=== PATIENT | male | born 1940 | race Two or more races ===

== ENCOUNTER 2017-03-23 17:51 | Inpatient (IN) | payer MEDICARE, OTHER ==
[~2017-03-23] VITALS: Ht 180.3 cm; Wt 71.0 kg
[2017-03-23] MEDS ORDERED: SODIUM CHLORIDE 0.9% 1,000 ML IV ONE ×2 (18:22)
[2017-03-23] MEDS ORDERED: AMIODARONE HCL 900 MG in DEXTROSE 500 ML IV SCH (18:32)
[2017-03-23 18:48] LABS: Hematocrit 51.4 % (41.0-53.0); Hemoglobin 16.9 g/dL (13.5-17.5); Mean Corpuscular Hemoglobin 30.8 pg (28.0-32.0); Mean Corpuscular Hgb Conc. 32.9 g/dL (32.0-36.0); Mean Corpuscular Volume 93.6 fL (80.0-100.0); Mean Platelet Volume 10.1 fL (6.9-10.8); Platelet Count (auto) 275 10^3/uL (140-450); Red Cell Distribution Width 14.2 % (11.8-14.3); White Blood Cell 21.3 10^3/uL (4.4-10.8)
[2017-03-23] MEDS: NOREPINEPHRINE 8 MG/250ML KIT 250 ML IV SCH (18:52)
[2017-03-23 18:54] LABS: INR 1.1 (0.9-1.15); Partial Thromboplastin Time 26.3 sec (22.64-33.71)
[2017-03-23 19:02] LABS: B-Type Natriuretic Peptide 111.29 pg/mL (0-100)
[2017-03-23 19:07] LABS: Temperature: 21.6 C (20.0-25.0)
[2017-03-23 19:15] LABS: Albumin 3.4 g/dL (3.4-5.0); BUN/Creatinine Ratio 8.8; Bilirubin, Total 0.5 mg/dL (0.2-1.0); Calcium 8.5 mg/dL (8.5-10.1); Potassium 3.4 mmol/L (3.5-5.1)
[2017-03-23] MEDS ORDERED: ADENOSINE 6 MG/2 ML INJ IV ONE ×2 (19:41→20:00)
[2017-03-23] MEDS ORDERED: ONDANSETRON HCL 4 MG/2 ML VIAL ONE (19:46)
[2017-03-23 19:56] LABS: Metamyelocytes % 0; Myelocytes % 0; Promyelocytes % 0; Reactive Lymphocytes 0
[2017-03-23] MEDS ORDERED: MORPHINE SULF INJ 2 MG/ML SYRINGE 1ML IV ONE ×3 (20:00→20:30)
[2017-03-23] MEDS ORDERED: ONDANSETRON HCL 4 MG/2 ML VIAL IV ONE (20:00)
[2017-03-23] MEDS ORDERED: HEPARIN SODIUM (PORCINE) 5000 UNITS/ML 1ML VIAL IV ONE ×2 (20:00)
[2017-03-23] MEDS ORDERED: METOPROLOL TARTRATE 50 MG TAB PO ONE (20:00)
[2017-03-23] MEDS ORDERED: ASPirin 325 MG TAB PO ONE (20:00)
[2017-03-23 21:16] LABS: Platelet Estimate Adequate
[2017-03-23] MEDS ORDERED: NITROGLYCERIN 0.4 MG SL TAB SL PRN (21:30)
[2017-03-23] MEDS ORDERED: DEXTROSE (50%) 50ML SYRG IV PRN (21:30)
[2017-03-23] MEDS ORDERED: MORPHINE SULF INJ 2 MG/ML SYRINGE 1ML IV PRN (21:30)
[2017-03-23] MEDS: cefTRIAXone 1GM/50ML D5W 50 ML IV SCH (21:50)
[2017-03-23] MEDS: SODIUM CHLORIDE 0.9% 1,000 ML IV SCH (21:55)
[2017-03-23 22:38] LABS: Lactic Acid w/Reflex 3.3 mmol/L (0.4-2.0)
[2017-03-23] MEDS: AZITHROMYCIN 500MG/D5W 250ML 250 ML IV SCH (22:50)
[2017-03-23] MEDS: ATORVASTATIN 20 MG TAB PO SCH (22:50)
[2017-03-23 23:05] LABS: REFLEX LACTIC ACID YES OR NO YES
[2017-03-24] VITALS (14 sets, daily range): BP systolic 98–134; BP diastolic 42–94
[2017-03-24] MEDS ORDERED: LORazepam 2MG/ML-1ML VIAL IV PRN
[2017-03-24] MEDS: ACCU-CHEK COMFORT CURVE STRIP VI SCH ×4 (00:05→18:16)
[2017-03-24] MEDS: InsuLIN REG 1unit/0.01ml Soln (100units/ml) SC SCH ×4 (00:08→18:19)
[2017-03-24 00:56] LABS: Lactic Acid w/Reflex 2.9 mmol/L (0.4-2.0)
[2017-03-24 01:08] LABS: REFLEX LACTIC ACID YES OR NO NO
[2017-03-24] MEDS: SODIUM CHLORIDE 0.9% 1,000 ML IV SCH ×2 (05:17→21:17)
[2017-03-24] MEDS: ACETAMINOPHEN 325 MG TAB PO PRN ×2 (06:24→13:58)
[2017-03-24 06:48] LABS: Basophils # (auto) 0 uL; Basophils % (auto) 0.2 % (0.0-2.0); Eosinophils # (auto) 0 uL; Hematocrit 42.7 % (41.0-53.0); Hemoglobin 14.4 g/dL (13.5-17.5); Lymphocytes # (auto) 1.2 uL; Lymphocytes % (auto) 5.5 % (10.0-50.0); Mean Corpuscular Hemoglobin 31.2 pg (28.0-32.0); Mean Corpuscular Hgb Conc. 33.7 g/dL (32.0-36.0); Mean Corpuscular Volume 92.6 fL (80.0-100.0); Mean Platelet Volume 9.7 fL (6.9-10.8); Monocytes # (auto) 1.8 uL; Monocytes % (auto) 8.2 % (0.0-12.0); Neutrophils # (auto) 18.6 uL; Neutrophils % (auto) 86.1 % (37.0-80.0); Platelet Count (auto) 204 10^3/uL (140-450); White Blood Cell 21.7 10^3/uL (4.4-10.8)
[2017-03-24 07:40] LABS: Albumin 2.9 g/dL (3.4-5.0); BUN/Creatinine Ratio 11.3; Bilirubin, Total 0.5 mg/dL (0.2-1.0); Calcium 7.2 mg/dL (8.5-10.1); Potassium 3.2 mmol/L (3.5-5.1); Total Protein 5.9 g/dL (6.4-8.2)
[2017-03-24] MEDS: cefTRIAXone 1GM/50ML D5W 50 ML IV SCH (09:07)
[2017-03-24] MEDS: PANTOPRAZOLE 40 MG/10 ML VIAL IV SCH (09:38)
[2017-03-24] MEDS: ASPirin 81 mg TAB PO SCH (09:38)
[2017-03-24] MEDS: ENOXAPARIN SOD 30 MG/0.3 ML SYRINGE SC SCH (09:38)
[2017-03-24] MEDS: ENALAPRIL MALEATE 2.5 MG TAB PO SCH (09:38)
[2017-03-24] MEDS: AZITHROMYCIN 500MG/D5W 250ML 250 ML IV SCH (10:10)
[2017-03-24] MEDS ORDERED: PIPERACILLIN-TAZOB 2.25GM 50 ML IV ONE (10:45)
[2017-03-24] MEDS ORDERED: PIPERACILLIN-TAZOB 2.25GM 50 ML IV SCH (12:00)
[2017-03-24] MEDS: PIPERACILLIN-TAZOB 2.25GM 50 ML IV SCH ×2 (12:30→18:14)
[2017-03-24] MEDS: LINEZOLID 600MG/300ML 300 ML IV SCH (14:52)
[2017-03-24] MEDS: NOREPINEPHRINE 8 MG/250ML KIT 250 ML IV SCH (18:49)
[2017-03-24 19:27] LABS: Urine Bilirubin Negative (Negative); Urine Blood TRACE /uL (Negative); Urine Color Yellow (Yellow); Urine Glucose TRACE mg/dL (Normal); Urine Hyaline Cast MOD /lpf (0 - 2); Urine Ketone TRACE (Negative); Urine Mucus FEW (None Seen); Urine Nitrite Negative (Negative); Urine RBC 19 /hpf (0 - 3); Urine Squamous Epithelial Cell FEW /hpf (<5); Urine Urobilinogen Normal (Negative); Urine WBC Clumps PRESENT /hpf (None Seen); Urine pH 5.5 (5.0-8.0)
[2017-03-24] MEDS ORDERED: LINEZOLID 600MG/300ML 300 ML IV SCH (22:00)
[2017-03-24] MEDS: ATORVASTATIN 20 MG TAB PO SCH (22:35)
[2017-03-25] VITALS (95 sets, daily range): BP systolic 65–135; BP diastolic 22–75
[2017-03-25] MEDS: PIPERACILLIN-TAZOB 2.25GM 50 ML IV SCH ×5 (00:09→23:50)
[2017-03-25] MEDS: ACCU-CHEK COMFORT CURVE STRIP VI SCH ×5 (00:23→23:50)
[2017-03-25] MEDS ORDERED: AMIODARONE HCL 900 MG in DEXTROSE 500 ML IV SCH (00:34)
[2017-03-25] MEDS: LINEZOLID 600MG/300ML 300 ML IV SCH ×2 (02:05→14:03)
[2017-03-25] MEDS: SODIUM CHLORIDE 0.9% 1,000 ML IV SCH ×2 (02:17→06:15)
[2017-03-25 04:00] LABS: Basophils # (auto) 0 uL; Eosinophils # (auto) 0 uL; Eosinophils % (auto) 0.1 % (0.0-7.0); Hematocrit 36.8 % (41.0-53.0); Hemoglobin 12.3 g/dL (13.5-17.5); Lymphocytes # (auto) 1.1 uL; Lymphocytes % (auto) 6.9 % (10.0-50.0); Mean Corpuscular Hemoglobin 31.3 pg (28.0-32.0); Mean Corpuscular Hgb Conc. 33.5 g/dL (32.0-36.0); Mean Corpuscular Volume 93.4 fL (80.0-100.0); Monocytes # (auto) 1.1 uL; Monocytes % (auto) 6.6 % (0.0-12.0); Neutrophils # (auto) 14.2 uL; Neutrophils % (auto) 86.4 % (37.0-80.0); Platelet Count (auto) 131 10^3/uL (140-450); Red Cell Distribution Width 13.6 % (11.8-14.3); White Blood Cell 16.4 10^3/uL (4.4-10.8)
[2017-03-25 04:20] LABS: Albumin 2.6 g/dL (3.4-5.0); BUN/Creatinine Ratio 19.1; Bilirubin, Total 0.6 mg/dL (0.2-1.0); Calcium 6.6 mg/dL (8.5-10.1); Magnesium 1.9 mg/dL (1.6-2.6); Phosphorus 2.4 mg/dL (2.5-4.90); Potassium 3.2 mmol/L (3.5-5.1); Total Protein 5.3 g/dL (6.4-8.2); Uric Acid 6.4 mg/dL (3.5-7.2)
[2017-03-25] MEDS: InsuLIN REG 1unit/0.01ml Soln (100units/ml) SC SCH ×4 (06:07→17:47)
[2017-03-25] MEDS: ACETAMINOPHEN 325 MG TAB PO PRN ×3 (06:08→20:22)
[2017-03-25] MEDS: ENALAPRIL MALEATE 2.5 MG TAB PO SCH (10:00)
[2017-03-25] MEDS: PANTOPRAZOLE 40 MG/10 ML VIAL IV SCH (10:07)
[2017-03-25] MEDS: ENOXAPARIN SOD 30 MG/0.3 ML SYRINGE SC SCH (10:08)
[2017-03-25] MEDS: AZITHROMYCIN 500MG/D5W 250ML 250 ML IV SCH (10:08)
[2017-03-25] MEDS: ASPirin 81 mg TAB PO SCH (10:09)
[2017-03-25] MEDS: SOD CHL 0.9%/ KCL 20MEQ 1,000 ML IV SCH (10:45)
[2017-03-25] MEDS ORDERED: AMIODARONE HCL 200 MG TAB PO ONE (14:15)
[2017-03-25] MEDS: NOREPINEPHRINE 8 MG/250ML KIT 250 ML IV SCH (17:47)
[2017-03-25] MEDS: AMIODARONE HCL 200 MG TAB PO SCH (22:00)
[2017-03-25] MEDS ORDERED: ATORVASTATIN 20 MG TAB PO SCH (22:00)
[2017-03-26] VITALS (44 sets, daily range): BP systolic 87–145; BP diastolic 41–93
[2017-03-26] MEDS: SOD CHL 0.9%/ KCL 20MEQ 1,000 ML IV SCH ×2 (00:07→11:37)
[2017-03-26] MEDS: InsuLIN REG 1unit/0.01ml Soln (100units/ml) SC SCH ×4 (00:07→17:44)
[2017-03-26] MEDS: LINEZOLID 600MG/300ML 300 ML IV SCH (01:51)
[2017-03-26 04:30] LABS: Basophils # (auto) 0 uL; Basophils % (auto) 0.2 % (0.0-2.0); Eosinophils # (auto) 0 uL; Eosinophils % (auto) 0.1 % (0.0-7.0); Hematocrit 38.4 % (41.0-53.0); Hemoglobin 12.8 g/dL (13.5-17.5); Lymphocytes % (auto) 7.4 % (10.0-50.0); Mean Corpuscular Hemoglobin 30.9 pg (28.0-32.0); Mean Corpuscular Hgb Conc. 33.4 g/dL (32.0-36.0); Mean Corpuscular Volume 92.4 fL (80.0-100.0); Mean Platelet Volume 10.2 fL (6.9-10.8); Monocytes # (auto) 0.9 uL; Monocytes % (auto) 6.3 % (0.0-12.0); Neutrophils # (auto) 11.7 uL; Platelet Count (auto) 143 10^3/uL (140-450); Red Cell Distribution Width 13.2 % (11.8-14.3); White Blood Cell 13.6 10^3/uL (4.4-10.8)
[2017-03-26 05:05] LABS: BUN/Creatinine Ratio 19.7; Magnesium 2.1 mg/dL (1.6-2.6); Potassium 3.3 mmol/L (3.5-5.1)
[2017-03-26] MEDS: ACCU-CHEK COMFORT CURVE STRIP VI SCH ×3 (05:57→17:44)
[2017-03-26] MEDS: PIPERACILLIN-TAZOB 2.25GM 50 ML IV SCH ×3 (05:57→17:44)
[2017-03-26] MEDS: ASPirin 81 mg TAB PO SCH (09:22)
[2017-03-26] MEDS: PANTOPRAZOLE 40 MG/10 ML VIAL IV SCH (09:22)
[2017-03-26] MEDS: ENOXAPARIN SOD 30 MG/0.3 ML SYRINGE SC SCH (09:23)
[2017-03-26] MEDS ORDERED: POTASSIUM CHL 20 Meq TABLET PO ONE ×2 (10:00→11:15)
[2017-03-26] MEDS: AMIODARONE HCL 200 MG TAB PO SCH ×2 (10:00→21:57)
[2017-03-26] MEDS: PANTOPRAZOLE 40 MG TAB PO SCH (10:00)
[2017-03-26] MEDS ORDERED: SODIUM CHLORIDE 0.9% 1,000 ML IV SCH (10:00)
[2017-03-26] MEDS: ACETAMINOPHEN 325 MG TAB PO PRN (11:36)
[2017-03-26 12:10] LABS: PSA Free 2.97 ng/mL
[2017-03-26] MEDS ORDERED: ONDANSETRON HCL 4 MG/2 ML VIAL IV ONE (12:15)
[2017-03-26] MEDS: TAMSULOSIN HYDROCHLORIDE 0.4 MG CAP PO SCH (17:44)
[2017-03-27] MEDS: SOD CHL 0.9%/ KCL 20MEQ 1,000 ML IV SCH (00:03)
[2017-03-27] MEDS: PIPERACILLIN-TAZOB 2.25GM 50 ML IV SCH ×3 (00:03→11:09)
[2017-03-27] MEDS: ACCU-CHEK COMFORT CURVE STRIP VI SCH ×4 (00:03→17:19)
[2017-03-27 05:18] VITALS: BP 131/59
[2017-03-27] MEDS: InsuLIN REG 1unit/0.01ml Soln (100units/ml) SC SCH ×4 (05:27→17:19)
[2017-03-27] MEDS: ACETAMINOPHEN 325 MG TAB PO PRN ×2 (05:28→12:01)
[2017-03-27 06:11] LABS: Basophils # (auto) 0 uL; Basophils % (auto) 0.2 % (0.0-2.0); Eosinophils # (auto) 0 uL; Eosinophils % (auto) 0.4 % (0.0-7.0); Hematocrit 38.6 % (41.0-53.0); Lymphocytes % (auto) 11.6 % (10.0-50.0); Mean Corpuscular Hemoglobin 31.3 pg (28.0-32.0); Mean Corpuscular Hgb Conc. 33.6 g/dL (32.0-36.0); Mean Corpuscular Volume 93.1 fL (80.0-100.0); Mean Platelet Volume 10.7 fL (6.9-10.8); Monocytes # (auto) 0.5 uL; Monocytes % (auto) 6.1 % (0.0-12.0); Neutrophils # (auto) 7.1 uL; Neutrophils % (auto) 81.7 % (37.0-80.0); Nucleated Red Blood Cells % 0.1 %; Platelet Count (auto) 121 10^3/uL (140-450); Red Cell Distribution Width 13.1 % (11.8-14.3); White Blood Cell 8.7 10^3/uL (4.4-10.8)
[2017-03-27 06:38] LABS: BUN/Creatinine Ratio 19.2; Calcium 7.2 mg/dL (8.5-10.1)
[2017-03-27 10:00] VITALS: BP 135/73
[2017-03-27] MEDS: ASPirin 81 mg TAB PO SCH (10:11)
[2017-03-27] MEDS: ENOXAPARIN SOD 30 MG/0.3 ML SYRINGE SC SCH (10:11)
[2017-03-27] MEDS: PANTOPRAZOLE 40 MG TAB PO SCH (10:11)
[2017-03-27] MEDS: AMIODARONE HCL 200 MG TAB PO SCH ×2 (10:12→22:00)
[2017-03-27] MEDS ORDERED: LEVOFLOXACIN 750MG 150 ML IV ONE (12:45)
[2017-03-27] MEDS: SODIUM CHLORIDE 0.9% 1,000 ML IV SCH (12:59)
[2017-03-27] MEDS: ONDANSETRON HCL 4 MG/2 ML VIAL IV PRN (13:10)
[2017-03-27 13:56] VITALS: BP 113/77
[2017-03-27 16:00] VITALS: BP 134/71
[2017-03-27] MEDS: TAMSULOSIN HYDROCHLORIDE 0.4 MG CAP PO SCH (18:05)
[2017-03-27] MEDS: metFORMIN HYDROCHLORIDE 500 MG TAB PO SCH (18:06)
[2017-03-27] MEDS ORDERED: TEMAZEPAM 15 MG CAP PO PRN (21:45)
[2017-03-27 22:00] VITALS: BP 133/66
[2017-03-28 05:00] VITALS: BP 139/81
[2017-03-28 05:17] LABS: Basophils # (auto) 0 uL; Basophils % (auto) 0.2 % (0.0-2.0); Eosinophils # (auto) 0.1 uL; Eosinophils % (auto) 0.8 % (0.0-7.0); Hemoglobin 12.8 g/dL (13.5-17.5); Lymphocytes % (auto) 13.4 % (10.0-50.0); Mean Corpuscular Hemoglobin 30.8 pg (28.0-32.0); Mean Corpuscular Hgb Conc. 32.9 g/dL (32.0-36.0); Mean Corpuscular Volume 93.8 fL (80.0-100.0); Mean Platelet Volume 10.3 fL (6.9-10.8); Monocytes # (auto) 0.5 uL; Monocytes % (auto) 6.3 % (0.0-12.0); Neutrophils # (auto) 5.9 uL; Neutrophils % (auto) 79.3 % (37.0-80.0); Nucleated Red Blood Cells % 0.1 %; Platelet Count (auto) 124 10^3/uL (140-450); Red Cell Distribution Width 13.4 % (11.8-14.3); White Blood Cell 7.5 10^3/uL (4.4-10.8)
[2017-03-28] MEDS: SODIUM CHLORIDE 0.9% 1,000 ML IV SCH (05:22)
[2017-03-28] MEDS: InsuLIN REG 1unit/0.01ml Soln (100units/ml) SC SCH ×4 (05:22→18:00)
[2017-03-28] MEDS: ACCU-CHEK COMFORT CURVE STRIP VI SCH ×4 (05:22→18:14)
[2017-03-28 05:57] LABS: Calcium 7.4 mg/dL (8.5-10.1)
[2017-03-28 07:00] VITALS: BP 156/85
[2017-03-28] MEDS: metFORMIN HYDROCHLORIDE 500 MG TAB PO SCH ×2 (09:04→18:00)
[2017-03-28] MEDS: ACETAMINOPHEN 325 MG TAB PO PRN ×2 (09:05→21:24)
[2017-03-28] MEDS: LEVOFLOXACIN 750MG 150 ML IV SCH (10:14)
[2017-03-28] MEDS: AMIODARONE HCL 200 MG TAB PO SCH (10:15)
[2017-03-28] MEDS: ASPirin 81 mg TAB PO SCH (10:15)
[2017-03-28] MEDS: PANTOPRAZOLE 40 MG TAB PO SCH (10:15)
[2017-03-28] MEDS: ENOXAPARIN SOD 30 MG/0.3 ML SYRINGE SC SCH (10:16)
[2017-03-28 10:58] LABS: Hepatitis B Surface Antibody Positive
[2017-03-28 13:00] VITALS: BP 127/68
[2017-03-28 17:50] VITALS: BP 148/79
[2017-03-28] MEDS: TAMSULOSIN HYDROCHLORIDE 0.4 MG CAP PO SCH (18:00)
[2017-03-28] MEDS: ONDANSETRON HCL 4 MG/2 ML VIAL IV PRN (19:29)
[2017-03-28] MEDS: METOPROLOL TARTRATE 25 MG TAB PO SCH (21:19)
[2017-03-28 22:00] VITALS: BP 133/75
[2017-03-29] MEDS: ACCU-CHEK COMFORT CURVE STRIP VI SCH ×3 (00:17→12:00)
[2017-03-29 05:00] VITALS: BP 128/71
[2017-03-29] MEDS: InsuLIN REG 1unit/0.01ml Soln (100units/ml) SC SCH ×3 (05:24→12:00)
[2017-03-29] MEDS: metFORMIN HYDROCHLORIDE 500 MG TAB PO SCH (08:00)
[2017-03-29] MEDS: ONDANSETRON HCL 4 MG/2 ML VIAL IV PRN (08:21)
[2017-03-29 08:52] VITALS: BP 143/76
[2017-03-29] MEDS: PANTOPRAZOLE 40 MG TAB PO SCH (11:09)
[2017-03-29] MEDS: ASPirin 81 mg TAB PO SCH (11:09)
[2017-03-29] MEDS: LEVOFLOXACIN 750MG 150 ML IV SCH (11:09)
[2017-03-29] MEDS: METOPROLOL TARTRATE 25 MG TAB PO SCH (11:12)
[2017-03-29] MEDS: ENOXAPARIN SOD 30 MG/0.3 ML SYRINGE SC SCH (11:12)
[2017-03-29] MEDS: ACETAMINOPHEN 325 MG TAB PO PRN (11:24)
[2017-03-29] MEDS ORDERED: METF500T PO (12:43)
[2017-03-29] MEDS ORDERED: ASPI81CH43 PO (12:43)
[2017-03-29] MEDS ORDERED: MET25T PO (12:43)
[2017-03-29 13:01] VITALS: BP 130/54
[2017-03-29] MEDS ORDERED: SACC250C PO (13:29)
[2017-03-29] MEDS ORDERED: LEVO750T2 PO (13:29)
[2017-03-29] MEDS ORDERED: LISI-646 PO (14:26)
[2017-03-29 15:29] VITALS: BP 130/54
[2017-03-29] MEDS ORDERED: Boost Glucose Control 8 Ounces PO SCH (18:00)
== END 2017-03-29 17:45 | disposition home or self-care (01) | DRG 871 ==
LOC: ER 17:59 → TELE 18:00 → ICU WEST 03-24 20:21 → TELE-WESTW 03-26 11:14
PROVIDERS: ADMIT Family Medicine; ATTEND Internal Medicine
PROC: 0HQ1XZZ Repair Face Skin, External Approach (ICD-10-PCS; principal; 2017-03-23)
DX: A41.9 Sepsis, unspecified organism (principal); J69.0 Pneumonitis due to inhalation of food and vomit; N17.0 Acute kidney failure with tubular necrosis; G93.41 Metabolic encephalopathy; I48.1 Persistent atrial fibrillation; E11.22 Type 2 diabetes mellitus with diabetic chronic kidney disease; I50.9 Heart failure, unspecified; W19.XXXA Unspecified fall, initial encounter; E86.0 Dehydration; E87.6 Hypokalemia; F17.200 Nicotine dependence, unspecified, uncomplicated; J44.9 Chronic obstructive pulmonary disease, unspecified; N18.9 Chronic kidney disease, unspecified; N40.0 Benign prostatic hyperplasia without lower urinary tract symptoms; S01.91XA Laceration without foreign body of unspecified part of head, initial encounter; Y93.89 Activity, other specified; Y92.89 Other specified places as the place of occurrence of the external cause; Z79.82 Long term (current) use of aspirin; Z71.6 Tobacco abuse counseling; Z90.49 Acquired absence of other specified parts of digestive tract; Z79.899 Other long term (current) drug therapy
CPT/HCPCS: 12032; 36415; 70450; 71010; 71020; 76775; 80048; 80053; 80061; 81001; 82306; 82550; 82570; 82962; 83036; 83605; 83735; 83880; 83970; 84100; 84132; 84154; 84156; 84300; 84443; 84484; 84550; 85007; 85025; 85027; 85379; 85610; 85730; 86706; 86803; 87040; 87070; 87077; 87081; 87086; 87186; 87205; 87340; 93005; 93306; 95819; 96361; 96365; 96375; C9113; J0153; J0696; J1815; J1956; J2405; J2543

== ENCOUNTER 2017-04-20 14:38 | Emergency (ER) | payer MEDICARE ==
[~2017-04-20] VITALS: Ht 180.3 cm; Wt 72.6 kg
[~2017-04-20 14:38] MED LIST: ASPI81CH43 PO; LEVO750T2 PO; LISI-646 PO; MET25T PO; METF500T PO; SACC250C PO
[2017-04-20 16:45] LABS: BUN/Creatinine Ratio 15.3; Bilirubin, Total 0.5 mg/dL (0.2-1.0); Calcium 7.7 mg/dL (8.5-10.1); Total Protein 6.2 g/dL (6.4-8.2)
[2017-04-20 17:04] LABS: Basophils # (auto) 0 uL; Basophils % (auto) 0.4 % (0.0-2.0); Eosinophils # (auto) 0.1 uL; Eosinophils % (auto) 1.3 % (0.0-7.0); Hematocrit 39.8 % (41.0-53.0); Hemoglobin 13.1 g/dL (13.5-17.5); Lymphocytes # (auto) 1.6 uL; Lymphocytes % (auto) 23.2 % (10.0-50.0); Mean Corpuscular Hemoglobin 31.6 pg (28.0-32.0); Mean Corpuscular Hgb Conc. 32.8 g/dL (32.0-36.0); Mean Corpuscular Volume 96.3 fL (80.0-100.0); Mean Platelet Volume 10.2 fL (6.9-10.8); Monocytes # (auto) 0.7 uL; Monocytes % (auto) 9.7 % (0.0-12.0); Neutrophils # (auto) 4.4 uL; Neutrophils % (auto) 65.4 % (37.0-80.0); Platelet Count (auto) 158 10^3/uL (140-450); Red Cell Distribution Width 15.3 % (11.8-14.3); White Blood Cell 6.8 10^3/uL (4.4-10.8)
[2017-04-20] MEDS ORDERED: ACCU-CHEK COMFORT CURVE STRIP VI ONE (21:00)
[2017-04-20] MEDS ORDERED: SODIUM CHLORIDE 0.9% 1,000 ML IV ONE (21:15)
[2017-04-20 22:35] VITALS: BP 134/78
== END 2017-04-20 23:52 | disposition home or self-care (01) ==
LOC: ER 14:38
DX: I95.9 Hypotension, unspecified (principal); I48.91 Unspecified atrial fibrillation; E11.9 Type 2 diabetes mellitus without complications; R55 Syncope and collapse; J44.9 Chronic obstructive pulmonary disease, unspecified; Z90.49 Acquired absence of other specified parts of digestive tract; Z79.899 Other long term (current) drug therapy
CPT/HCPCS: 36415; 71010; 80053; 82962; 85025; 93005; 94761; 96360; 96361; 99285; J7030